=== PATIENT | female | born 1970 | race Caucasian/White ===

== ENCOUNTER 2020-02-18 05:39 | Emergency (ER) | payer BC, MEDICAID ==
[~2020-02-18] VITALS: Ht 154.9 cm; Wt 95.5 kg
[2020-02-18 06:28] LABS: ALANINE AMINOTRANSFERASE 22 U/L (12-78); ALBUMIN 3.4 G/DL (3.4-5.0); ALBUMIN/GLOBULIN RATIO 0.8 (1.1-1.5); ALKALINE PHOSPHATASE 56 IU/L (46-116); ANION GAP 7 (8-16); ASPARTATE AMINO TRANSFERASE 14 U/L (10-37); BILIRUBIN,TOTAL 0.6 MG/DL (0.1-1.0); BLOOD UREA NITROGEN 12 MG/DL (7-18); BUN/CREATININE RATIO 12.8 (6.6-38.0); CALCIUM 8.9 MG/DL (8.5-10.1); CHLORIDE 105 MMOL/L (99-107); CREATININE 0.94 MG/DL (0.40-0.90); GLUCOSE 113 MG/DL (70-104); LIPASE 89 U/L (73-393); POTASSIUM 3.9 MMOL/L (3.5-5.1); SODIUM 139 MMOL/L (135-145); TOTAL CARBON DIOXIDE 27.1 MMOL/L (24-32); TOTAL PROTEIN 7.6 G/DL (6.4-8.2); eGFR 63 ML/MIN
[2020-02-18 06:36] LABS: BASOPHILS % (AUTO) 0.2 % (0-1); EOSINOPHILS # (AUTO) 0.3 X10'3 (0-0.9); EOSINOPHILS % (AUTO) 1.9 % (0-6); HEMATOCRIT 42.2 % (35.0-45.0); LYMPHOCYTES # (AUTO) 1.3 X10'3 (1.1-4.8); LYMPHOCYTES % (AUTO) 7.3 % (21-51); MEAN CORPUSCULAR HEMOGLOBIN 29.7 PG (27.0-31.0); MEAN CORPUSCULAR HGB CONC 33.3 g/dL (33.0-36.5); MEAN CORPUSCULAR VOLUME 89.3 FL (78-98); MEAN PLATELET VOLUME 7.8 FL (7.4-10.4); MONOCYTES # (AUTO) 0.6 X10'3 (0-0.9); MONOCYTES % (AUTO) 3.8 % (2-12); NEUTROPHILS % (AUTO) 86.8 % (42-75); PLATELET COUNT 243 X10'3 (140-440); RED BLOOD COUNT 4.72 X10'6 (4.20-5.60); RED CELL DISTRIBUTION WIDTH 12.3 % (11.5-14.5); WHITE BLOOD COUNT 17.3 X10'3 (4.5-11.0)
[2020-02-18 06:47] LABS: CLARITY,URINE CLOUDY (Clear); COLOR,URINE ORANGE (Yellow); UA COLLECTION TYPE CLN CATCH MIDSTREAM
[2020-02-18 06:48] LABS: URINE HCG NEGATIVE (NEG)
[2020-02-18] MEDS ORDERED: CEPH500C5 PO (07:04)
[2020-02-18] MEDS ORDERED: NAPR-56 PO (07:04)
[2020-02-18] MEDS ORDERED: ACET-3068 PO (07:04)
[2020-02-18] MEDS ORDERED: normal saline 1000ML IV soln IVB ONE (07:05)
[2020-02-18] MEDS ORDERED: ketorolac tromethamine 15mg/ml inj. IV ONE (07:05)
[2020-02-18] MEDS ORDERED: CefTRIAXone/D5W-Rocephin 1gm 50 ML IV ONE (07:05)
[2020-02-18 07:25] LABS: BACTERIA,URINE 1+ /HPF (Neg); RBC,URINE 0-2 /HPF (0-2); SQUAMOUS EPITHELIAL CELL,UR FEW /LPF (FEW); WBC,URINE 0-4 /HPF (0-4)
[2020-02-18 08:43] VITALS: BP 101/57
== END 2020-02-18 08:45 | disposition home or self-care (01) ==
LOC: ER 05:40
DX: N12 Tubulo-interstitial nephritis, not specified as acute or chronic (principal); Z90.710 Acquired absence of both cervix and uterus; Z88.2 Allergy status to sulfonamides; Z79.899 Other long term (current) drug therapy
CPT/HCPCS: 36415; 80053; 81001; 81025; 83690; 85025; 87088; 96365; 96375; 99284; J0696; J1885; J7030